=== PATIENT | male | born 1965 | race Caucasian/White ===

== ENCOUNTER 2019-07-30 16:33 | Inpatient (IN) | payer BC ==
[~2019-07-30] VITALS: Ht 172.7 cm; Wt 66.2 kg
[~2019-07-30 16:33] MED LIST: AMOCLA875 PO; ATOR40TA PO; Aspirin EC81 MG PO; HYDACE5 PO; IBUP800 PO; LISI20 PO; META800 PO; METO50 PO; OTC COLD MED
[2019-07-30 17:49] LABS: BASOPHILS ABSOLUTE AUTO 0.08 K/mm3 (0.00-0.23); BASOPHILS PERCENT AUTO 1 % (0-2); EOSINOPHILS PERCENT AUTO 1 % (0-6); Hematocrit 41.8 % (37.0-53.0); Hemoglobin 13.7 g/dL (13.5-17.5); IMMATURE GRAN ABSOLUTE AUTO 0.02 K/mm3 (0.00-0.10); IMMATURE GRAN PERCENT AUTO 0 % (0-1); LYMPHOCYTES ABSOLUTE AUTO 1.48 K/mm3 (0.84-5.20); LYMPHOCYTES PERCENT AUTO 20 % (21-46); MONOCYTES ABSOLUTE AUTO 0.73 K/mm3 (0.16-1.47); MONOCYTES PERCENT AUTO 10 % (4-13); Mean Corpuscular HGB 29.9 pg (26.0-34.0); Mean Corpuscular HGB Conc 32.8 g/dL (31.5-36.5); Mean Corpuscular Volume 91 fL (80-100); Mean Platelet Volume 11.2 fL (9.1-12.4); NEUTROPHILS ABSOLUTE AUTO 4.83 K/mm3 (1.96-9.15); NEUTROPHILS PERCENT AUTO 67 % (41-73); Platelet Count 250 K/mm3 (150-400); RDW Coefficient Variation 13.5 % (11.7-14.2); RDW Standard Deviation 45.1 fL (35.1-46.3); Red Blood Cell Count 4.58 M/mm3 (4.30-5.90); White Blood Cell Count 7.24 K/mm3 (4.00-11.30)
[2019-07-30 18:15] LABS: Alanine Aminotransfer (ALT/SGP 106 U/L (12-78); Albumin, Blood 3.5 g/dL (3.4-5.0); Albumin/Globulin Ratio 1.1 (0.8-1.8); Alk Phos 70 U/L (50-136); Anion Gap 5 mmol/L (6-16); Aspartate Aminotrans (AST/SGOT 112 U/L (12-37); Bilirubin, Total 0.8 mg/dL (0.1-1.0); Blood Urea Nitrogen 32 mg/dL (8-24); Bun/Creatinine Ratio 28.1 (12.0-20.0); CO2, Blood 25 mmol/L (21-32); Calcium, Blood 8.1 mg/dL (8.5-10.1); Chloride, Blood 110 mmol/L (98-108); Creatinine, Blood 1.14 mg/dL (0.60-1.20); Ethanol (Alcohol), Blood, Med <3 mg/dL; Globulin, Blood 3.1 g/dL (2.2-4.0); Glomerular Filtration Rate >60 (60-); Glucose, Blood 115 mg/dL (70-99); Potassium, Blood 4.1 mmol/L (3.5-5.5); Sodium, Blood 140 mmol/L (136-145); Total Protein, Blood 6.6 g/dL (6.4-8.2)
[2019-07-31 05:15] LABS: BASOPHILS ABSOLUTE AUTO 0.08 K/mm3 (0.00-0.23); BASOPHILS PERCENT AUTO 1 % (0-2); EOSINOPHILS ABSOLUTE AUTO 0.29 K/mm3 (0.00-0.68); EOSINOPHILS PERCENT AUTO 4 % (0-6); Hematocrit 39.4 % (37.0-53.0); Hemoglobin 12.9 g/dL (13.5-17.5); IMMATURE GRAN ABSOLUTE AUTO 0.01 K/mm3 (0.00-0.10); IMMATURE GRAN PERCENT AUTO 0 % (0-1); LYMPHOCYTES ABSOLUTE AUTO 1.91 K/mm3 (0.84-5.20); LYMPHOCYTES PERCENT AUTO 26 % (21-46); MONOCYTES ABSOLUTE AUTO 0.82 K/mm3 (0.16-1.47); MONOCYTES PERCENT AUTO 11 % (4-13); Mean Corpuscular HGB 29.3 pg (26.0-34.0); Mean Corpuscular HGB Conc 32.7 g/dL (31.5-36.5); Mean Corpuscular Volume 90 fL (80-100); Mean Platelet Volume 10.5 fL (9.1-12.4); NEUTROPHILS ABSOLUTE AUTO 4.36 K/mm3 (1.96-9.15); NEUTROPHILS PERCENT AUTO 58 % (41-73); Platelet Count 215 K/mm3 (150-400); RDW Coefficient Variation 13.4 % (11.7-14.2); RDW Standard Deviation 43.7 fL (35.1-46.3); White Blood Cell Count 7.47 K/mm3 (4.00-11.30)
[2019-07-31 05:37] LABS: Anion Gap 8 mmol/L (6-16); Blood Urea Nitrogen 25 mg/dL (8-24); Bun/Creatinine Ratio 23.6 (12.0-20.0); CO2, Blood 26 mmol/L (21-32); Calcium, Blood 7.6 mg/dL (8.5-10.1); Chloride, Blood 108 mmol/L (98-108); Creatinine, Blood 1.06 mg/dL (0.60-1.20); Glomerular Filtration Rate >60 (60-); Glucose, Blood 79 mg/dL (70-99); Potassium, Blood 3.6 mmol/L (3.5-5.5); Sodium, Blood 142 mmol/L (136-145)
--- NOTE | 2019-07-31 05:53 | NUR ---
SHIFT SUMMARY PT RESTING IN ROOM COMFORTABLY AT THIS TIME. NO ACUTE CHANGES IN STATUS SINCE ARRIVAL. RESP EVEN UNLABORED ON RA W/ SATS >92%. DENIED CP OR SOB T/O NIGHT. PT HAS SOME CONFUSION AND LOSES TRAIN OF THOUGHT EASILY, NEEDS REMINDING AND REDIRECTING BUT FOLLOWS DIRECTIONS WELL. BED ALARM PLACED FOR SAFETY. PT USING CALL LIGHT APPROPRIATELY. WILL GIVE BEDSIDE REPORT TO ONCOMING RN.
--- NOTE | 2019-07-31 08:04 | NUR ---
Hepatologist at bedside updating pt on plan of care. Pt educated by wastewater treatment plant operator about options of angiogram vs medical management. Plan is for angiogram. MD edcuated pt, assessed for further questions. This RN at bedside during conversation.
[2019-07-31 12:11] LABS: CHOL/HDL RATIO 2.5; Cholesterol 140 mg/dL (50-200); HDL Cholesterol 57 mg/dL (>39); LDL/HDL RATIO 1.3; Low Density Lipoprotein Chol 74 mg/dL (0-110); Triglycerides 46 mg/dL (30-160); Very Low Density Lipoprot Chol 9 mg/dL (6-32)
--- NOTE | 2019-07-31 14:30 | NUR ---
TR BAND DEFLATION BEGUN. SITE WNL. SEE CATH MANAGEMENT SITE DOCUMENTATION FOR SUBSEQUENT DOCUMENTATION REGARDING RECOVERY.
--- NOTE | 2019-07-31 16:02 | NUR ---
TR BAND COMPLETELY DEFLATED, NO ACTIVE BLEEDING. EVIDENCE 45 MINUTES AGO OF BLEEDING WHICH MUST HAVE OCCURED WITH PRIOR DEFLATION, NO ACTIVE BLEEDING, NO HEMATOMA, NO SWELLING, NO BRUISING NOTED. TR BAND IN PLACE. VITAL SIGNS STABLE, AND PT DENIES ALL PAIN/DISCOMFORT.
--- NOTE | 2019-07-31 19:43 | NUR ---
Shift Summary Pt is s/p angio. all coronaries are clear per official court interpreter. R radial access site WNL, site fully recovered with no events. Site non tender. Pulses equal bilat. See shift assessment for detailed systems assessment. No acute chagnes throughout shift. Pt has mild confusion at baseline when recalling previous events. Pt's daughter, Jocelyn in to see pt today. Her phone number is : [phone]. She would like to be updated with changes in pt condition or plans for future procedures. Pt's son, Yogesh, updated on pt condition today. His phone number is [phone]. No acute concerns. Report off to [facility]A Car who assumes care.
--- NOTE | 2019-07-31 23:00 | NUR ---
wrist well profused, pulse strong, dried blood on wrist identified by previous nurse as being there previously, cleaned up wrist and placed clear dressing, still using brace for protection, currently resting with eyes closed and even breathing, tv on, call light in reach, bed in low positon, rm air, saline locked, a+o, anxious at times, concerned r/cognition of pt, explaining procedures in simple redundent terms, will continue to monitor and treat until share bsr with pt and day shift nurse
[2019-08-01 04:31] LABS: Albumin, Blood 3.1 g/dL (3.4-5.0); Anion Gap 7 mmol/L (6-16); Blood Urea Nitrogen 24 mg/dL (8-24); CO2, Blood 27 mmol/L (21-32); Calcium, Blood 8.1 mg/dL (8.5-10.1); Chloride, Blood 107 mmol/L (98-108); Creatinine, Blood 1.09 mg/dL (0.60-1.20); Glomerular Filtration Rate >60 (60-); Glucose, Blood 80 mg/dL (70-99); Phosphorus, Blood 3.1 mg/dL (2.5-4.9); Potassium, Blood 3.9 mmol/L (3.5-5.5); Sodium, Blood 141 mmol/L (136-145)
--- NOTE | 2019-08-01 06:30 | NUR ---
alert at baseline, knows basic facts but gets confused by the details, no acute incedents noted during the shift, used urinal on his own, rm air, saline locked, bed in low position, wrist site looks good, will continue to monitor and treat until share bsr with day staff and pt
[2019-08-01] MEDS ORDERED: FURO20 PO (10:53)
[2019-08-01] MEDS ORDERED: NITR.4SL SL (10:54)
[2019-08-01] MEDS ORDERED: POTA10T PO (10:54)
--- NOTE | 2019-08-01 14:38 | NUR ---
PATIENT DC'D TO HOME WITH DAUGHTER. DC INSTRUCTIONS AND EDUCATION DISCUSSED WITH PATIENT AND COPY PROVIDED. PATIENT DOES NOT HAVE A PCP, LEFT A MESSAGE WITH LOOM INSPECTOR TO FOLLOW UP WITH PATIENT AND ASSIST WITH ESTABLISHING A PCP. PATIENT AND FAMILY DENY ANY FURTHER QUESTIONS OR CONCERNS.
== END 2019-08-01 14:35 | disposition home or self-care (01) | DRG 280 ==
LOC: ER 16:33 → ERHOLD 16:34 → PCU 16:34
PROVIDERS: Internal Medicine; Nurse Practitioner Acute Care; Physician Assistant; ADMIT Hospitalist
PROC: B2111ZZ Fluoroscopy of Multiple Coronary Arteries using Low Osmolar Contrast (ICD-10-PCS; principal; 2019-07-31)
DX: I11.0 Hypertensive heart disease with heart failure (principal); I50.21 Acute systolic (congestive) heart failure; I21.A1 Myocardial infarction type 2; G92 Toxic encephalopathy; Z79.82 Long term (current) use of aspirin; I42.8 Other cardiomyopathies; I25.2 Old myocardial infarction; E78.5 Hyperlipidemia, unspecified; F17.210 Nicotine dependence, cigarettes, uncomplicated; I77.810 Thoracic aortic ectasia; I35.1 Nonrheumatic aortic (valve) insufficiency
CPT/HCPCS: 36415; 70450; 71045; 76937; 80048; 80053; 80061; 80069; 82140; 82947; 83036; 83880; 84443; 84484; 85025; 85730; 86592; 93005; 93010; 93458; 93970; 96365; 96375; 96376; 99152; 99153; 99285-25; A9270-GY; C1769; C1894; C8929; G0480; J1644; J1940; J2250; J3010; J7030; Q9957; Q9967

== ENCOUNTER 2019-08-09 14:47 | Day surgery (SDC) | payer BC ==
[~2019-08-09 14:47] MED LIST changes: +FURO20 PO; +NITR.4SL SL; +POTA10T PO
--- NOTE | 2019-08-09 17:27 | NUR ---
PT NOT SEEN IN [facility] TODAY
== END 2019-08-09 23:00 | disposition home or self-care (01) ==
LOC: ATC 14:47
DX: I21.4 Non-ST elevation (NSTEMI) myocardial infarction (principal); I63.40 Cerebral infarction due to embolism of unspecified cerebral artery; I48.0 Paroxysmal atrial fibrillation; I11.0 Hypertensive heart disease with heart failure; I50.9 Heart failure, unspecified; E78.5 Hyperlipidemia, unspecified; Z91.038 Other insect allergy status; Z79.82 Long term (current) use of aspirin; Z79.01 Long term (current) use of anticoagulants; Z79.899 Other long term (current) drug therapy; F17.210 Nicotine dependence, cigarettes, uncomplicated; G47.33 Obstructive sleep apnea (adult) (pediatric); Z99.89 Dependence on other enabling machines and devices

== ENCOUNTER 2019-08-11 01:51 | Day surgery (SDC) | payer BC ==
[2019-08-12] MEDS ORDERED: WARF5 PO (10:32)
[2019-08-12] MEDS ORDERED: MAGNESIUM OXID500 MG PO (10:33)
[2019-08-12] MEDS ORDERED: B Complex-Foli1 EACH PO (10:34)
== END 2019-08-11 03:30 | disposition home or self-care (01) ==
LOC: ATC 01:51
DX: I48.0 Paroxysmal atrial fibrillation (principal); I63.40 Cerebral infarction due to embolism of unspecified cerebral artery; E78.5 Hyperlipidemia, unspecified; I25.2 Old myocardial infarction; F17.200 Nicotine dependence, unspecified, uncomplicated; I11.0 Hypertensive heart disease with heart failure; I50.9 Heart failure, unspecified; G47.33 Obstructive sleep apnea (adult) (pediatric)

== ENCOUNTER 2019-08-12 00:14 | Day surgery (SDC) | payer BC ==
[2019-08-12] MEDS ORDERED: WARF5 PO (10:32)
[2019-08-12] MEDS ORDERED: MAGNESIUM OXID500 MG PO (10:33)
[2019-08-12] MEDS ORDERED: B Complex-Foli1 EACH PO (10:34)
--- NOTE | 2019-08-12 11:00 | NUR ---
PTS FINGERSTICK INR TODAY IS 2.2 WILL COME BACK TOMORROW
== END 2019-08-12 10:55 | disposition home or self-care (01) ==
LOC: ATC 00:14
DX: I63.40 Cerebral infarction due to embolism of unspecified cerebral artery (principal); I48.0 Paroxysmal atrial fibrillation; Z79.01 Long term (current) use of anticoagulants; F17.210 Nicotine dependence, cigarettes, uncomplicated; I10 Essential (primary) hypertension; Z79.899 Other long term (current) drug therapy; I21.4 Non-ST elevation (NSTEMI) myocardial infarction; Z72.89 Other problems related to lifestyle
CPT/HCPCS: 36416; 85610; 96372; J1650

== ENCOUNTER 2019-08-13 00:03 | Day surgery (SDC) | payer BC ==
[~2019-08-13 00:03] MED LIST changes: +B Complex-Foli1 EACH PO; +MAGNESIUM OXID500 MG PO; +WARF5 PO
--- NOTE | 2019-08-13 11:46 | NUR ---
PT EXTREMELY ANXIOUS, CAREPROVIDER WAITED OUT IN WAITING ROOM. ALERTED HER OF PTS APPOINTMENT AND FINGERSTICK INR GOING DOWN TODAY FROM YESTERDAY, THEY ARE SUPPOSE TO GO TO [facility]
== END 2019-08-13 11:30 | disposition home or self-care (01) ==
LOC: ATC 00:03
DX: I21.4 Non-ST elevation (NSTEMI) myocardial infarction (principal); I63.40 Cerebral infarction due to embolism of unspecified cerebral artery; I48.0 Paroxysmal atrial fibrillation; E78.5 Hyperlipidemia, unspecified; I50.20 Unspecified systolic (congestive) heart failure; I25.2 Old myocardial infarction; F17.200 Nicotine dependence, unspecified, uncomplicated; Z79.01 Long term (current) use of anticoagulants; Z79.899 Other long term (current) drug therapy
CPT/HCPCS: 36416; 85610; 96372; J1650

== ENCOUNTER 2019-08-14 00:31 | Day surgery (SDC) | payer BC | END 2019-08-14 15:30 | disposition home or self-care (01) | LOC: ATC 00:31 | DX: I63.40 Cerebral infarction due to embolism of unspecified cerebral artery (principal); I48.0 Paroxysmal atrial fibrillation; I11.0 Hypertensive heart disease with heart failure; I50.20 Unspecified systolic (congestive) heart failure; I25.5 Ischemic cardiomyopathy; E78.5 Hyperlipidemia, unspecified; M19.042 Primary osteoarthritis, left hand; M19.041 Primary osteoarthritis, right hand; F17.210 Nicotine dependence, cigarettes, uncomplicated; I25.2 Old myocardial infarction; Z79.01 Long term (current) use of anticoagulants; Z79.82 Long term (current) use of aspirin; Z79.899 Other long term (current) drug therapy | CPT/HCPCS: 85610; 96372; J1650 ==

== ENCOUNTER 2019-08-15 02:16 | Day surgery (SDC) | payer BC | END 2019-08-15 15:05 | disposition home or self-care (01) | LOC: ATC 02:16 | DX: I63.40 Cerebral infarction due to embolism of unspecified cerebral artery (principal); I48.0 Paroxysmal atrial fibrillation; E78.5 Hyperlipidemia, unspecified; I11.0 Hypertensive heart disease with heart failure; I50.9 Heart failure, unspecified; F17.210 Nicotine dependence, cigarettes, uncomplicated; G47.33 Obstructive sleep apnea (adult) (pediatric); Z79.82 Long term (current) use of aspirin; Z79.899 Other long term (current) drug therapy | CPT/HCPCS: 96372; J1650 ==

== ENCOUNTER 2019-08-17 00:19 | Day surgery (SDC) | payer BC ==
--- NOTE | 2019-08-17 15:26 | NUR ---
Spoke with pt and his brother and sister in law about coumadin dosing and coumadin diet. Coumadin dose has been increased to 7.5 mg PO nightly starting tonight per pt's brother. Labs drawn from [facility]. Ammonia level drawn and sent on ice to lab.
== END 2019-08-17 15:15 | disposition home or self-care (01) ==
LOC: ATC 00:19
DX: I21.4 Non-ST elevation (NSTEMI) myocardial infarction (principal); I63.40 Cerebral infarction due to embolism of unspecified cerebral artery; I48.0 Paroxysmal atrial fibrillation; E78.5 Hyperlipidemia, unspecified; I11.0 Hypertensive heart disease with heart failure; F17.210 Nicotine dependence, cigarettes, uncomplicated; G47.33 Obstructive sleep apnea (adult) (pediatric); I50.9 Heart failure, unspecified; Z91.038 Other insect allergy status; Z79.82 Long term (current) use of aspirin; Z79.899 Other long term (current) drug therapy
CPT/HCPCS: 82140; 85610; J1650

== ENCOUNTER 2019-08-18 00:21 | Day surgery (SDC) | payer BC | END 2019-08-18 15:12 | disposition home or self-care (01) | LOC: ATC 00:21 | DX: I21.4 Non-ST elevation (NSTEMI) myocardial infarction (principal); I63.40 Cerebral infarction due to embolism of unspecified cerebral artery; I48.0 Paroxysmal atrial fibrillation; I11.0 Hypertensive heart disease with heart failure; I50.9 Heart failure, unspecified; F17.210 Nicotine dependence, cigarettes, uncomplicated; E78.5 Hyperlipidemia, unspecified; I25.2 Old myocardial infarction; Z79.01 Long term (current) use of anticoagulants; Z91.038 Other insect allergy status; Z79.82 Long term (current) use of aspirin; Z79.899 Other long term (current) drug therapy; G47.33 Obstructive sleep apnea (adult) (pediatric); Z99.89 Dependence on other enabling machines and devices | CPT/HCPCS: 85610; J1650 ==

== ENCOUNTER 2019-08-19 03:07 | Day surgery (SDC) | payer BC ==
--- NOTE | 2019-08-19 15:31 | NUR ---
PT AND HIS BROTHER STATE THAT PT HAS AN APPOINTMENT WITH [facility] TOM[facility]ROW. HH NURSE FILLED PILL BOX THIS MORNING. BROTHER STATES THEY MAY NEED TO CALL HH NURSE TOMORROW IF [facility] CHANGES HIS COUMADIN DOSE.
== END 2019-08-19 15:20 | disposition home or self-care (01) ==
LOC: ATC 03:07
DX: I21.4 Non-ST elevation (NSTEMI) myocardial infarction (principal); I63.40 Cerebral infarction due to embolism of unspecified cerebral artery; I48.0 Paroxysmal atrial fibrillation; I25.2 Old myocardial infarction; E78.5 Hyperlipidemia, unspecified; I11.0 Hypertensive heart disease with heart failure; I50.9 Heart failure, unspecified; F17.210 Nicotine dependence, cigarettes, uncomplicated; G47.33 Obstructive sleep apnea (adult) (pediatric); Z99.89 Dependence on other enabling machines and devices; Z79.01 Long term (current) use of anticoagulants; Z91.038 Other insect allergy status; Z79.82 Long term (current) use of aspirin; Z79.899 Other long term (current) drug therapy
CPT/HCPCS: 85610; J1650

== ENCOUNTER 2019-08-20 00:04 | Day surgery (SDC) | payer BC | END 2019-08-20 15:16 | disposition home or self-care (01) | LOC: ATC 00:04 | DX: I21.4 Non-ST elevation (NSTEMI) myocardial infarction (principal); E78.5 Hyperlipidemia, unspecified; I25.2 Old myocardial infarction; I11.0 Hypertensive heart disease with heart failure; I50.9 Heart failure, unspecified; F17.210 Nicotine dependence, cigarettes, uncomplicated; G47.33 Obstructive sleep apnea (adult) (pediatric); Z99.89 Dependence on other enabling machines and devices; Z91.038 Other insect allergy status; Z79.82 Long term (current) use of aspirin; Z79.899 Other long term (current) drug therapy | CPT/HCPCS: 36416; 85610; 96372; J1650 ==

== ENCOUNTER 2019-08-21 00:08 | Day surgery (SDC) | payer BC | END 2019-08-21 15:01 | disposition home or self-care (01) | LOC: ATC 00:08 | DX: I21.4 Non-ST elevation (NSTEMI) myocardial infarction (principal); I63.40 Cerebral infarction due to embolism of unspecified cerebral artery; I48.0 Paroxysmal atrial fibrillation; I25.2 Old myocardial infarction; E78.5 Hyperlipidemia, unspecified; F17.210 Nicotine dependence, cigarettes, uncomplicated; I11.0 Hypertensive heart disease with heart failure; I50.9 Heart failure, unspecified; Z91.038 Other insect allergy status; Z79.82 Long term (current) use of aspirin; Z79.899 Other long term (current) drug therapy; G47.33 Obstructive sleep apnea (adult) (pediatric); Z99.89 Dependence on other enabling machines and devices | CPT/HCPCS: 36416; 85610; 96372; J1650 ==

== ENCOUNTER 2019-08-22 00:30 | Day surgery (SDC) | payer BC ==
--- NOTE | 2019-08-22 15:04 | NUR ---
FINGERSTICK INR = 1.6 TODAY.
--- NOTE | 2019-08-22 18:25 | NUR ---
RESULTS OF INR FAXED TO [facility] OFFICE.
== END 2019-08-22 15:11 | disposition home or self-care (01) ==
LOC: ATC 00:30
DX: I21.4 Non-ST elevation (NSTEMI) myocardial infarction (principal); I63.40 Cerebral infarction due to embolism of unspecified cerebral artery; I11.0 Hypertensive heart disease with heart failure; I50.9 Heart failure, unspecified; I48.0 Paroxysmal atrial fibrillation; E78.5 Hyperlipidemia, unspecified; I25.2 Old myocardial infarction; Z79.82 Long term (current) use of aspirin; Z79.899 Other long term (current) drug therapy; Z91.038 Other insect allergy status; F17.210 Nicotine dependence, cigarettes, uncomplicated; G47.33 Obstructive sleep apnea (adult) (pediatric); Z99.89 Dependence on other enabling machines and devices
CPT/HCPCS: 85610; J1650

== ENCOUNTER 2020-12-20 09:07 | Day surgery (SDC) | payer OTHER ==
[~2020-12-20] VITALS: Ht 167.6 cm; Wt 91.5 kg
[2020-12-20] MEDS ORDERED: ELIQUIS5 M3 PO (10:09)
[2020-12-20] MEDS ORDERED: FUROSEMIDE40 MG PO (10:10)
--- NOTE | 2020-12-20 10:30 | NUR ---
Ambulatory in Day Surgery. Patient confirms NPO status and agrees with scheduled surgery. Patient States Post-Procedure ride home has been arranged. History, Chart, Medications and Allergies reviewed before start of procedure. Lungs clear T/O to Auscultation. + VOID PRIOR TO PROCEDURE.
--- NOTE | 2020-12-20 11:34 | NUR ---
12/20/20 1134 Sriram Saucedo History, Chart, Medications and Allergies reviewed before start of procedure. MONITOR INTACT WITH CONTINUOUS PULSE OXIMETRY AND INTERMITTENT BP. 3-LEAD EKG REVIEWED WITH PHYSICIAN PRIOR TO START OF PROCEDURE. O2 VIA N/C INTACT THROUGHOUT SEDATION/PROCEDURE. PATIENT DETERMINED TO BE ASA APPROPRIATE FOR PROPOFOL SEDATION PRIOR TO START OF PROCEDURE BY DR. CORREA.
--- NOTE | 2020-12-20 13:02 | NUR ---
Patient up to Ambulate independently. Gait steady. Discharged via wheelchair to private car for ride home WITH NEIGHBOR. Discharge instructions reviewed with patient. Patient verbalizes understanding. Copy given to patient to take home.
== END 2020-12-20 23:01 | disposition home or self-care (01) ==
LOC: ORSCMMR 09:07 → ORD 10:00 → ORSCMMR 10:00
PROVIDERS: Internal Medicine Gastroenterology
PROC: 0DBN8ZX Excision of Sigmoid Colon, Via Natural or Artificial Opening Endoscopic, Diagnostic (ICD-10-PCS; principal; 2020-12-20 10:00)
PROC: 0DBP8ZX Excision of Rectum, Via Natural or Artificial Opening Endoscopic, Diagnostic (ICD-10-PCS; principal; 2020-12-20 10:00)
DX: Z12.11 Encounter for screening for malignant neoplasm of colon (principal); D12.5 Benign neoplasm of sigmoid colon; K62.1 Rectal polyp; Z79.01 Long term (current) use of anticoagulants; Z79.899 Other long term (current) drug therapy; Z87.891 Personal history of nicotine dependence
CPT/HCPCS: 88305; J2704; J7120

== ENCOUNTER → 2021-04-14 | Outpatient (CLI) | payer OTHER ==
[~2021-04-14] MED LIST changes: +ELIQUIS5 M3 PO; +FUROSEMIDE40 MG PO
[2021-04-14 19:43] LABS: Albumin, Blood 3.9 g/dL (3.4-5.0); Albumin/Globulin Ratio 0.9 (0.8-1.8); Bilirubin, Direct 0.2 mg/dL (0.0-0.3); Bilirubin, Indirect 0.8 mg/dL (0.1-0.7); Globulin, Blood 4.2 g/dL (2.2-4.0); Total Protein, Blood 8.1 g/dL (6.4-8.2)
== END ==
LOC: LAB SHORT 18:10 → LAB 18:10
PROVIDERS: Physician Assistant
DX: R74.01 Elevation of levels of liver transaminase levels (principal); Z91.038 Other insect allergy status
CPT/HCPCS: 80076

== ENCOUNTER → 2021-11-07 | Outpatient (CLI) | payer OTHER ==
[2021-11-07 19:06] LABS: BASOPHILS ABSOLUTE AUTO 0.07 K/mm3 (0.00-0.23); BASOPHILS PERCENT AUTO 1 % (0-2); EOSINOPHILS ABSOLUTE AUTO 0.23 K/mm3 (0.00-0.68); EOSINOPHILS PERCENT AUTO 3 % (0-6); Hematocrit 44.8 % (37.0-53.0); Hemoglobin 15.1 g/dL (13.5-17.5); IMMATURE GRAN ABSOLUTE AUTO 0.02 K/mm3 (0.00-0.10); IMMATURE GRAN PERCENT AUTO 0 % (0-1); LYMPHOCYTES ABSOLUTE AUTO 2.13 K/mm3 (0.84-5.20); LYMPHOCYTES PERCENT AUTO 30 % (21-46); MONOCYTES ABSOLUTE AUTO 0.88 K/mm3 (0.16-1.47); MONOCYTES PERCENT AUTO 13 % (4-13); Mean Corpuscular HGB 30.2 pg (26.0-34.0); Mean Corpuscular HGB Conc 33.7 g/dL (31.5-36.5); Mean Corpuscular Volume 90 fL (80-100); Mean Platelet Volume 10.8 fL (9.1-12.4); NEUTROPHILS ABSOLUTE AUTO 3.69 K/mm3 (1.96-9.15); NEUTROPHILS PERCENT AUTO 53 % (41-73); Platelet Count 223 K/mm3 (150-400); RDW Coefficient Variation 12.7 % (11.7-14.2); RDW Standard Deviation 41.8 fL (35.1-46.3); White Blood Cell Count 7.02 K/mm3 (4.00-11.30)
[2021-11-07 20:00] LABS: Alanine Aminotransfer (ALT/SGP 50 U/L (12-78); Albumin, Blood 3.9 g/dL (3.4-5.0); Alk Phos 68 U/L (50-136); Anion Gap 5 mmol/L (6-16); Aspartate Aminotrans (AST/SGOT 42 U/L (12-37); Bilirubin, Total 1.1 mg/dL (0.1-1.0); Blood Urea Nitrogen 22 mg/dL (8-24); Bun/Creatinine Ratio 23.4 (12.0-20.0); CHOL/HDL RATIO 2.4; CO2, Blood 28 mmol/L (21-32); Calcium, Blood 8.5 mg/dL (8.5-10.1); Chloride, Blood 108 mmol/L (98-108); Cholesterol 118 mg/dL (50-200); Creatinine, Blood 0.94 mg/dL (0.60-1.20); Free Thyroxine 1.06 ng/dL (0.70-1.60); Globulin, Blood 3.9 g/dL (2.2-4.0); Glomerular Filtration Rate 95 (60-); Glucose, Blood 87 mg/dL (70-99); HDL Cholesterol 49 mg/dL (>39); Low Density Lipoprotein Chol 51 mg/dL (0-110); Potassium, Blood 4.7 mmol/L (3.5-5.5); Sodium, Blood 141 mmol/L (136-145); Total Protein, Blood 7.8 g/dL (6.4-8.2); Triglycerides 90 mg/dL (30-160); Very Low Density Lipoprot Chol 18 mg/dL (6-32)
== END ==
LOC: LAB SHORT 18:57
PROVIDERS: Family Medicine
DX: Z00.00 Encounter for general adult medical examination without abnormal findings (principal); F03.90 Unspecified dementia, unspecified severity, without behavioral disturbance, psychotic disturbance, mood disturbance, and anxiety; Z13.6 Encounter for screening for cardiovascular disorders; Z12.11 Encounter for screening for malignant neoplasm of colon
CPT/HCPCS: 80053; 80061; 82607; 82746; 84439; 85025; 85651

== ENCOUNTER → 2022-05-21 | Outpatient (CLI) | payer OTHER ==
[2022-05-21 19:43] LABS: Bun/Creatinine Ratio 16.4 (12.0-20.0); Calcium, Blood 8.8 mg/dL (8.5-10.1); Creatinine, Blood 0.86 mg/dL (0.60-1.20); Potassium, Blood 4.7 mmol/L (3.5-5.5)
== END | disposition home or self-care (01) ==
LOC: LAB SHORT 18:20
PROVIDERS: Family Medicine
DX: I10 Essential (primary) hypertension (principal)
CPT/HCPCS: 80048

== ENCOUNTER 2023-12-03 12:30 | Emergency (ER) | payer OTHER, MEDICARE ==
[~2023-12-03] VITALS: Ht 172.7 cm; Wt 77.1 kg
[2023-12-03] MEDS ORDERED: CeFAZolin Sodium 2,000 MG in NS 100 ML IV ONE (13:00)
[2023-12-03] MEDS ORDERED: Lactated Ringer's 1,000 ML IV ONE (13:00)
[2023-12-03] MEDS ORDERED: Lidocaine 1%-Epineph 1:100000 20 ML MDV INFIL ONE (13:00)
[2023-12-03] MEDS ORDERED: Tetanus and Diphtheria Toxoid 0.5 ML INJ IM ONE (13:00)
[2023-12-03 13:05] LABS: BASOPHILS ABSOLUTE AUTO 0.05 K/mm3 (0.00-0.23); BASOPHILS PERCENT AUTO 1 % (0-2); EOSINOPHILS ABSOLUTE AUTO 0.23 K/mm3 (0.00-0.68); EOSINOPHILS PERCENT AUTO 4 % (0-6); Hemoglobin 15.6 g/dL (13.5-17.5); IMMATURE GRAN ABSOLUTE AUTO 0.01 K/mm3 (0.00-0.10); IMMATURE GRAN PERCENT AUTO 0 % (0-1); LYMPHOCYTES ABSOLUTE AUTO 1.94 K/mm3 (0.84-5.20); LYMPHOCYTES PERCENT AUTO 31 % (21-46); MONOCYTES ABSOLUTE AUTO 0.73 K/mm3 (0.16-1.47); MONOCYTES PERCENT AUTO 12 % (4-13); Mean Corpuscular HGB Conc 33.9 g/dL (31.5-36.5); Mean Corpuscular Volume 89 fL (80-100); Mean Platelet Volume 10.2 fL (9.1-12.4); NEUTROPHILS ABSOLUTE AUTO 3.29 K/mm3 (1.96-9.15); NEUTROPHILS PERCENT AUTO 53 % (41-73); Platelet Count 205 K/mm3 (150-400); RDW Coefficient Variation 12.9 % (11.7-14.2); RDW Standard Deviation 42.1 fL (35.1-46.3); White Blood Cell Count 6.25 K/mm3 (4.00-11.30)
[2023-12-03 13:17] LABS: Albumin, Blood 3.6 g/dL (3.4-5.0); Albumin/Globulin Ratio 0.9 (0.8-1.8); Bilirubin, Total 0.8 mg/dL (0.1-1.0); Calcium, Blood 8.5 mg/dL (8.5-10.1); Creatinine, Blood 0.93 mg/dL (0.60-1.20); Globulin, Blood 3.8 g/dL (2.2-4.0); Potassium, Blood 4.5 mmol/L (3.5-5.5); Total Protein, Blood 7.4 g/dL (6.4-8.2)
[2023-12-03 18:15] VITALS: BP 125/77
[2023-12-03] MEDS ORDERED: BACITO TOP (18:16)
[2023-12-03] MEDS ORDERED: CEPH500 PO (18:16)
== END 2023-12-03 18:50 | disposition home or self-care (01) ==
LOC: ER 12:30
PROVIDERS: Emergency Medicine
DX: S01.01XA Laceration without foreign body of scalp, initial encounter (principal); F17.200 Nicotine dependence, unspecified, uncomplicated; I25.2 Old myocardial infarction; V19.9XXA Pedal cyclist (driver) (passenger) injured in unspecified traffic accident, initial encounter; Z91.038 Other insect allergy status; Z79.82 Long term (current) use of aspirin; Z79.899 Other long term (current) drug therapy
CPT/HCPCS: 12004; 12034; 70450; 72125; 80053; 85025; 86900; 86901; 90471; 90714; 96361-59; 96365-59; 99285-25; J0690; J7120

== ENCOUNTER 2024-06-11 14:02 | Observation (INO) | payer MEDICARE ==
[~2024-06-11] VITALS: Ht 165.1 cm; Wt 88.4 kg
[~2024-06-11 14:02] MED LIST changes: +BACITO TOP; +CEPH500 PO
[2024-06-11 15:43] LABS: BASOPHILS ABSOLUTE AUTO 0.07 K/mm3 (0.00-0.23); BASOPHILS PERCENT AUTO 1 % (0-2); EOSINOPHILS ABSOLUTE AUTO 0.16 K/mm3 (0.00-0.68); EOSINOPHILS PERCENT AUTO 2 % (0-6); Hematocrit 43.3 % (37.0-53.0); Hemoglobin 14.7 g/dL (13.5-17.5); IMMATURE GRAN ABSOLUTE AUTO 0.03 K/mm3 (0.00-0.10); IMMATURE GRAN PERCENT AUTO 0 % (0-1); LYMPHOCYTES ABSOLUTE AUTO 1.77 K/mm3 (0.84-5.20); LYMPHOCYTES PERCENT AUTO 19 % (21-46); MONOCYTES ABSOLUTE AUTO 0.93 K/mm3 (0.16-1.47); MONOCYTES PERCENT AUTO 10 % (4-13); Mean Corpuscular HGB 29.9 pg (26.0-34.0); Mean Corpuscular HGB Conc 33.9 g/dL (31.5-36.5); Mean Corpuscular Volume 88 fL (80-100); Mean Platelet Volume 10.7 fL (9.1-12.4); NEUTROPHILS ABSOLUTE AUTO 6.59 K/mm3 (1.96-9.15); NEUTROPHILS PERCENT AUTO 69 % (41-73); Platelet Count 300 K/mm3 (150-400); RDW Coefficient Variation 13.2 % (11.7-14.2); RDW Standard Deviation 42.5 fL (35.1-46.3); Red Blood Cell Count 4.91 M/mm3 (4.30-5.90); White Blood Cell Count 9.55 K/mm3 (4.00-11.30)
[2024-06-11 16:08] LABS: Albumin, Blood 3.5 g/dL (3.4-5.0); Albumin/Globulin Ratio 0.9 (0.8-1.8); Bilirubin, Total 1.5 mg/dL (0.1-1.0); Bun/Creatinine Ratio 17.7 (12.0-20.0); Calcium, Blood 9.7 mg/dL (8.5-10.1); Creatinine, Blood 1.13 mg/dL (0.60-1.20); Globulin, Blood 4.1 g/dL (2.2-4.0); Potassium, Blood 4.4 mmol/L (3.5-5.5); Total Protein, Blood 7.6 g/dL (6.4-8.2)
[2024-06-11] MEDS ORDERED: Diltiazem HCl 5 MG / ML 5ML Vial IV ONE ×2 (16:45→18:05)
[2024-06-11 18:13] LABS: Influenza A, PCR NEGATIVE (NEGATIVE); Influenza B, PCR NEGATIVE (NEGATIVE); Resp Syncytial Virus, PCR NEGATIVE (NEGATIVE); SARS-Cov-2 (COVID-19) PCR, MMC NEGATIVE (NEGATIVE)
[2024-06-11] MEDS ORDERED: NS 1,000 ML IV SCH (19:35)
[2024-06-11] MEDS ORDERED: Metoprolol Tartrate 1 MG/ML 5 ML VIAL IV PRN (20:40)
[2024-06-11] MEDS ORDERED: Ondansetron HCl 2 MG / ML 2ML Vial IV PRN (20:45)
[2024-06-11] MEDS ORDERED: FLU VACC TS2024-25(6MOS UP)/PF 45 MCG/0.5 ML SYRINGE IM SCH (20:45)
[2024-06-11] MEDS ORDERED: Apixaban 5 MG Tab PO SCH (21:00)
[2024-06-11] MEDS ORDERED: Metoprolol Tartrate 25 MG Tab PO SCH (21:00)
[2024-06-11] MEDS ORDERED: Metoprolol Tartrate 50 MG Tab PO ONE (21:00)
[2024-06-11 21:57] LABS: Adenovirus Not Detected (NOT DETECT); Bordetella pertussis Not Detected (NOT DETECT); Chlamydophila pneumoniae Not Detected (NOT DETECT); Coronavirus 229E Not Detected (NOT DETECT); Coronavirus HKU1 Not Detected (NOT DETECT); Coronavirus NL63 Not Detected (NOT DETECT); Coronavirus OC43 Not Detected (NOT DETECT); Human Metapneumovirus Not Detected (NOT DETECT); Human Rhinovirus/Enterovirus Not Detected (NOT DETECT); Influenza A/2009-H1 Not Detected (NOT DETECT); Influenza A/H1 Not Detected (NOT DETECT); Influenza A/H3 Not Detected (NOT DETECT); Influenza B Not Detected (NOT DETECT); Mycoplasma pneumoniae Not Detected (NOT DETECT); Parainfluenza Virus 1 Not Detected (NOT DETECT); Parainfluenza Virus 2 Not Detected (NOT DETECT); Parainfluenza Virus 3 Not Detected (NOT DETECT); Parainfluenza Virus 4 Not Detected (NOT DETECT); Respiratory Syncytial Virus Not Detected (NOT DETECT); SARS-Cov-2 (COVID-19), BioFire Not Detected (NOT DETECT)
[2024-06-11 22:55] VITALS: BP 132/100
--- NOTE | 2024-06-12 | NUR ---
UPDATE CALL PLACED TO RESIDENT REGARDING PATIENT'S RESPIRATORY STATUS. PATIENT PLACED ON 2L NC D/T SATURATIONS MID 80s ON ARRIVAL TO PCU. SATURATIONS IMPROVED WITH OXYGEN PLACEMENT. TACHYPNEIC WITH RR 20s. PATIENT WITH CRACKLES IN BASES OF LUNGS. PATIENT CONFUSED AND RESTLESS. RESIDENT MADE AWARE, NO NEW ORDERS AT THIS TIME.
--- NOTE | 2024-06-12 04:13 | NUR ---
UPDATE RESIDENT CALLED AND UPDATED WITH PATIENT STATUS. PATIENT WITH INCREASING SOB, ANXIETY AND CONFUSION. PATIENT TACHYPNEIC AND CONTINUES TO HAVE HARSH NONPRODUCTIVE COUGH. ON 2L WHEN OXYGEN IN NOSE, PATIENT FREQUENTLY REMOVING AND REQUIRING REDIRECTION. SPO2 MID 80s WHEN O2 OUT OF NOSE. BLADDER SCAN PERFORMED D/T NO OUTPUT SINCE ADMISSION, <50 MLs IN BLADDER. RESIDENT AWARE. ORDER FOR VBG RECEIVED.
[2024-06-12 04:24] VITALS: BP 110/95
[2024-06-12 04:28] LABS: Albumin, Blood 3.3 g/dL (3.4-5.0); Albumin/Globulin Ratio 0.9 (0.8-1.8); Bilirubin, Total 1.3 mg/dL (0.1-1.0); Bun/Creatinine Ratio 20.2 (12.0-20.0); Calcium, Blood 8.9 mg/dL (8.5-10.1); Creatinine, Blood 1.09 mg/dL (0.60-1.20); Globulin, Blood 3.8 g/dL (2.2-4.0); Magnesium, Blood 1.8 mg/dL (1.6-2.4); Potassium, Blood 4.3 mmol/L (3.5-5.5); Total Protein, Blood 7.1 g/dL (6.4-8.2)
[2024-06-12 05:00] LABS: Base Excess Venous -0.8 mmol/L; Bicarbonate Venous 24.1 mmol/L (24.0-30.0); pH Blood Venous 7.43 (7.34-7.37)
--- NOTE | 2024-06-12 05:57 | NUR ---
SHIFT SUMMARY PATIENT ALERT, VERY CONFUSED. PATIENT REDIRECTED MULTIPLE TIMES DURING THE NIGHT. BED ALARM ON FOR SAFETY. PATIENT CONVERTED TO SR AROUND 0030, OCCASIONAL BIGEMINY. BP STABLE. PATIENT PLACED ON 2L FOR WORK OF BREATHING AND DESATTING TO MID 80s. PROVIDER MADE AWARE OF PATIENT'S RESPIRATORY STATUS, SEE PREVIOUS NOTES. NO OUTPUT THIS SHIFT, PATIENT BLADDER SCANNED WITH <50 MLs IN BLADDER. PATIENT STANDBY ASSIST IN ROOM. TOLERATING PO. NO OTHER CHANGES SINCE PREVIOUS NOTES. WILL REPORT TO DAY SHIFT RN.
[2024-06-12 08:29] VITALS: BP 134/84
[2024-06-12] MEDS ORDERED: Mag Sulfate 1 GM/D5% 100ML 100 ML IV STA (08:38)
[2024-06-12] MEDS ORDERED: Furosemide 40 MG Tab PO SCH (09:00)
[2024-06-12] MEDS ORDERED: Atorvastatin 40 MG Tab PO SCH (09:00)
[2024-06-12] MEDS ORDERED: Metoprolol Succinate 50 MG TABCR PO SCH (09:00)
[2024-06-12] MEDS ORDERED: Aspirin 81 MG Chew PO SCH (09:00)
[2024-06-12] MEDS ORDERED: Metoprolol Succinate 25 MG TABCR PO SCH (09:00)
[2024-06-12] MEDS ORDERED: Furosemide 10 MG/ML 4ML Vial IV SCH (10:00)
[2024-06-12] MEDS ORDERED: Lisinopril 10 MG Tab PO SCH (11:00)
[2024-06-12 11:55] VITALS: BP 120/84
--- NOTE | 2024-06-12 12:12 | NUR ---
PT HAS WOUND ON HIS RIGHT GREAT TOE, STATES HE HAS HAD IT FOR "LONG TIME." BOTH FEET ARE DUSKY, COOL, WITH VERY LITTLE SENSATION. MD NOTIFIED. PHOTOS IN CHART.
[2024-06-12 15:10] VITALS: BP 134/106
--- NOTE | 2024-06-12 15:10 | NUR ---
Pt. is awake in bed and welcomes my visit. Pt. is pleasant but did display some initial evidence of confusion. Pt. verbalized about the recent passing of his mother in the [facility] four days previous. Listened with empathy and a calming presence. Pt. verbalized the importance of his being able to join the family for her . Pastoral grief support is given as is prayer. Pt. displayed a more focused demeanor and a greater sense of hope. Pt. verbalized gratitude for the spiritual care support.
[2024-06-12] MEDS ORDERED: Empagliflozin 10 MG TAB PO SCH (16:00)
[2024-06-12] MEDS ORDERED: Spironolactone 12.5 MG TAB PO SCH (16:00)
[2024-06-12] MEDS ORDERED: Metoprolol Tartrate 25 MG Tab PO ONE (16:00)
[2024-06-12] MEDS ORDERED: FURO20 PO (16:39)
[2024-06-12] MEDS ORDERED: METO50ER PO (16:40)
[2024-06-12] MEDS ORDERED: JARDIANCE10 MG PO (16:42)
[2024-06-12] MEDS ORDERED: ALDACTONE25 MG PO (16:43)
--- NOTE | 2024-06-12 17:38 | NUR ---
DISCHARGE SUMMARY DISCHARGE INSTRUCTIONS GIVEN TO PT AND PTS DAUGHTERS BOYFRIEND VERBALLY AND IN WRITING. BOTH IVS REMOVED WITHOUT ISSUE, DRESSED IN GAUZE AND COBAN. PT WAS TAKEN TO EXIT BY WHEELCHAIR WITH ALL BELONGINGS BY AID. PT LEFT ON RA.
== END 2024-06-12 17:19 | disposition home or self-care (01) ==
LOC: ER 14:02 → PCU 14:03
PROVIDERS: Family Medicine; Nurse Practitioner Acute Care; Physician Assistant; Student in an Organized Health Care Education/Training Program; ADMIT Student in an Organized Health Care Education/Training Program
DX: I48.91 Unspecified atrial fibrillation (principal); I11.0 Hypertensive heart disease with heart failure; I50.23 Acute on chronic systolic (congestive) heart failure; R74.01 Elevation of levels of liver transaminase levels; R79.89 Other specified abnormal findings of blood chemistry; J44.9 Chronic obstructive pulmonary disease, unspecified; I25.10 Atherosclerotic heart disease of native coronary artery without angina pectoris; I25.2 Old myocardial infarction; I35.0 Nonrheumatic aortic (valve) stenosis; I77.810 Thoracic aortic ectasia; I36.1 Nonrheumatic tricuspid (valve) insufficiency; E78.5 Hyperlipidemia, unspecified; Z79.01 Long term (current) use of anticoagulants; Z79.899 Other long term (current) drug therapy; Z91.038 Other insect allergy status; Z86.73 Personal history of transient ischemic attack (TIA), and cerebral infarction without residual deficits
CPT/HCPCS: 0202U; 0241U; 36415; 71046; 80053; 82803; 83735; 83880; 84145; 84484; 85025; 93005; 93010; 94762; 96365; 96366; 96375; 96376; 97116; 97161; 99285-25; A9270; C8929; G0378; J1940; J3475; J7030; Q9957

== ENCOUNTER → 2024-07-14 | Outpatient (CLI) | payer MEDICARE ==
[~2024-07-14] MED LIST changes: +ALDACTONE25 MG PO; +JARDIANCE10 MG PO; +METO50ER PO
[2024-07-14 14:15] LABS: Albumin, Blood 3.5 g/dL (3.4-5.0); Albumin/Globulin Ratio 0.9 (0.8-1.8); Bilirubin, Total 1.6 mg/dL (0.1-1.0); Bun/Creatinine Ratio 21.3 (12.0-20.0); Calcium, Blood 8.2 mg/dL (8.5-10.1); Creatinine, Blood 1.22 mg/dL (0.60-1.20); Globulin, Blood 3.7 g/dL (2.2-4.0); Potassium, Blood 3.9 mmol/L (3.5-5.5); Total Protein, Blood 7.2 g/dL (6.4-8.2)
== END | disposition home or self-care (01) ==
LOC: LAB 12:33 → LAB SHORT 12:33
DX: I50.22 Chronic systolic (congestive) heart failure (principal)
CPT/HCPCS: 80053

== ENCOUNTER 2024-08-10 14:16 | Inpatient (IN) | payer MEDICARE ==
[~2024-08-10] VITALS: Ht 162.6 cm; Wt 77.0 kg
[2024-08-10 14:39] LABS: BASOPHILS ABSOLUTE AUTO 0.02 K/mm3 (0.00-0.23); BASOPHILS PERCENT AUTO 0 % (0-2); EOSINOPHILS ABSOLUTE AUTO 0.01 K/mm3 (0.00-0.68); EOSINOPHILS PERCENT AUTO 0 % (0-6); Hematocrit 45.1 % (37.0-53.0); Hemoglobin 14.7 g/dL (13.5-17.5); IMMATURE GRAN ABSOLUTE AUTO 0.03 K/mm3 (0.00-0.10); IMMATURE GRAN PERCENT AUTO 0 % (0-1); LYMPHOCYTES ABSOLUTE AUTO 1.34 K/mm3 (0.84-5.20); LYMPHOCYTES PERCENT AUTO 18 % (21-46); MONOCYTES ABSOLUTE AUTO 0.75 K/mm3 (0.16-1.47); MONOCYTES PERCENT AUTO 10 % (4-13); Mean Corpuscular HGB 28.2 pg (26.0-34.0); Mean Corpuscular HGB Conc 32.6 g/dL (31.5-36.5); Mean Corpuscular Volume 86 fL (80-100); Mean Platelet Volume 10.8 fL (9.1-12.4); NEUTROPHILS ABSOLUTE AUTO 5.32 K/mm3 (1.96-9.15); NEUTROPHILS PERCENT AUTO 71 % (41-73); Platelet Count 216 K/mm3 (150-400); RDW Coefficient Variation 15.4 % (11.7-14.2); RDW Standard Deviation 47.9 fL (35.1-46.3); Red Blood Cell Count 5.22 M/mm3 (4.30-5.90); White Blood Cell Count 7.47 K/mm3 (4.00-11.30)
[2024-08-10 14:56] LABS: International Normalized Ratio 1.51; Prothrombin Time Results 15.7 Sec (9.7-11.5)
[2024-08-10 14:57] LABS: Albumin, Blood 3.5 g/dL (3.4-5.0); Bilirubin, Total 3.3 mg/dL (0.1-1.0); Calcium, Blood 8.9 mg/dL (8.5-10.1); Creatinine, Blood 2.03 mg/dL (0.60-1.20); Globulin, Blood 3.4 g/dL (2.2-4.0); Potassium, Blood 4.3 mmol/L (3.5-5.5); Total Protein, Blood 6.9 g/dL (6.4-8.2)
[2024-08-10 15:24] LABS: Base Excess Venous -4.2 mmol/L; Bicarbonate Venous 20.5 mmol/L (24.0-30.0); PCO2 Venous 43.5 mmHg (38-42); pH Blood Venous 7.31 (7.34-7.37)
[2024-08-10 16:05] LABS: Source, Urine Clean Catch
[2024-08-10] MEDS ORDERED: FUROSEMIDE40 MG PO (16:14)
[2024-08-10 16:28] LABS: Appearance, Urine Clear (Clear); Bilirubin, Urine Neg (Neg); Blood, Urine Neg (Neg); Color, Urine Yellow (P-Yellow); Glucose Qualitative, Urine Neg (Neg); Ketones, Urine Neg (Neg); Leukocyte Esterase, Urine Neg (Neg); Nitrite, Urine Neg (Neg); Protein, Urine 2+ (Neg); Urobilinogen, Urine 3+ (Normal)
[2024-08-10] MEDS ORDERED: TRAZ50 PO (16:34)
[2024-08-10] MEDS ORDERED: SPIRONOLACTONE25 MG PO (16:36)
[2024-08-10 16:46] LABS: Bacteria Rare /hpf; Red Blood Cells, Urine Not Seen /hpf (0-2); Squamous Epithelial Cells Rare /hpf (Few); White Blood Cells, Urine 0-2 /hpf (0-5)
[2024-08-10] MEDS ORDERED: FLU VACC TS2024-25(6MOS UP)/PF 45 MCG/0.5 ML SYRINGE IM SCH (17:00)
[2024-08-10 17:27] LABS: U Amphetamine Screen Not Detected; U Barbituate Screen Not Detected; U Benzodiazapine Screen Not Detected; U Buprenorphine Screen Not Detected; U Cannabinoids Screen Not Detected; U Cocaine Screen Not Detected; U Methadone Screen Not Detected; U Methamphetamine Screen Not Detected; U Opiates Screen Not Detected; U Oxycodone Screen Not Detected; U Phencyclidine Screen Not Detected
[2024-08-10] MEDS ORDERED: Dextrose 5% 1,000 ML IV SCH (17:30)
[2024-08-10] MEDS ORDERED: OLANZapine 10 MG Vial IM ONE (18:00)
[2024-08-10 18:06] LABS: Albumin, Blood 3.1 g/dL (3.4-5.0); Anion Gap 18 mmol/L (3-11); Anti-Xa UFH, PHA Monitoring 0.67 IU/mL; Blood Urea Nitrogen 71 mg/dL (8-24); Bun/Creatinine Ratio 33.5 (12.0-20.0); CO2, Blood 18 mmol/L (21-32); Calcium, Blood 8.5 mg/dL (8.5-10.1); Chloride, Blood 119 mmol/L (98-108); Creatinine, Blood 2.12 mg/dL (0.60-1.20); Glomerular Filtration Rate 35 (60-); Glucose, Blood 102 mg/dL (70-99); International Normalized Ratio 1.61; Phosphorus, Blood 5.6 mg/dL (2.5-4.9); Potassium, Blood 4.1 mmol/L (3.5-5.5); Prothrombin Time Results 16.6 Sec (9.7-11.5); Sodium, Blood 151 mmol/L (136-145)
[2024-08-10 19:53] VITALS: BP 103/91
--- NOTE | 2024-08-10 20:00 | NUR ---
ASSUMPTION NOTE: THIS RN TO ASSUME CARE OF PATIENT COMING FROM THE EMERGENCY ROOM. PATIENT IS ALERT AND ORIENTED X2, KNOWS HE IS IN THE HOSPITAL AND TO SELF. PATIENT DENIED CHEST PAIN/PRESSUE OR FEELING SHORT OR BREATH. PATIENT IS GRUNTING AND ASKING FOR WATER, THIS RN NOTIFIED HE IS TO NOT HAVE ANYTHING BY MOUTH DUE TO ASPIRATION RISK AND NOT BEING FULLY ALERT. PATIENT HAS CALL LIGHT WITHIN REACH BED IN LOWES POSITION AND NOT NEEDING ANYTHING FURTHER AT THIS TIME.
[2024-08-10 20:03] LABS: Base Excess Venous -3.9 mmol/L; Bicarbonate Venous 21.1 mmol/L (24.0-30.0); PCO2 Venous 41.2 mmHg (38-42); pH Blood Venous 7.34 (7.34-7.37)
[2024-08-10] MEDS ORDERED: Dose Adjust by Pharmacy XX STA (20:08)
[2024-08-10] MEDS ORDERED: Heparin Sodium,Porcine/0.5 NS 500 ML IV SCH (20:10)
[2024-08-10 23:20] VITALS: BP 134/103
[2024-08-11] VITALS (12 sets, daily range): BP systolic 77–131; BP diastolic 59–92
[2024-08-11] MEDS ORDERED: HYDROmorphone HCl/Pf 1MG SYR IV PRN (04:25)
[2024-08-11] MEDS ORDERED: Acetaminophen 650 MG Supp PR PRN (04:25)
[2024-08-11 04:40] LABS: BASOPHILS ABSOLUTE AUTO 0.03 K/mm3 (0.00-0.23); BASOPHILS PERCENT AUTO 0 % (0-2); EOSINOPHILS ABSOLUTE AUTO 0.01 K/mm3 (0.00-0.68); EOSINOPHILS PERCENT AUTO 0 % (0-6); Hematocrit 43.3 % (37.0-53.0); Hemoglobin 13.8 g/dL (13.5-17.5); IMMATURE GRAN ABSOLUTE AUTO 0.03 K/mm3 (0.00-0.10); IMMATURE GRAN PERCENT AUTO 0 % (0-1); LYMPHOCYTES ABSOLUTE AUTO 1.45 K/mm3 (0.84-5.20); LYMPHOCYTES PERCENT AUTO 16 % (21-46); MONOCYTES ABSOLUTE AUTO 0.85 K/mm3 (0.16-1.47); MONOCYTES PERCENT AUTO 9 % (4-13); Mean Corpuscular HGB 27.7 pg (26.0-34.0); Mean Corpuscular HGB Conc 31.9 g/dL (31.5-36.5); Mean Corpuscular Volume 87 fL (80-100); Mean Platelet Volume 10.7 fL (9.1-12.4); NEUTROPHILS PERCENT AUTO 75 % (41-73); Platelet Count 192 K/mm3 (150-400); RDW Coefficient Variation 15.6 % (11.7-14.2); RDW Standard Deviation 48.7 fL (35.1-46.3); Red Blood Cell Count 4.99 M/mm3 (4.30-5.90); White Blood Cell Count 9.37 K/mm3 (4.00-11.30)
[2024-08-11] MEDS ORDERED: Clarify Drug Order XX ONE (05:10)
[2024-08-11 05:13] LABS: Albumin, Blood 3.1 g/dL (3.4-5.0); Bilirubin, Total 3.4 mg/dL (0.1-1.0); Bun/Creatinine Ratio 35.2 (12.0-20.0); Calcium, Blood 8.3 mg/dL (8.5-10.1); Creatinine, Blood 1.99 mg/dL (0.60-1.20); Globulin, Blood 3.1 g/dL (2.2-4.0); Potassium, Blood 4.1 mmol/L (3.5-5.5); Total Protein, Blood 6.2 g/dL (6.4-8.2)
--- NOTE | 2024-08-11 06:10 | NUR ---
SHIFT SUMMARY: PATIENT IS ALERT AND ORIENTED X2 AT THE START OF SHIFT AND WAXED THROUGHOUT. KNEW HE WAS IN THE HOSPITAL AT TIMES AND FORGETFUL WHEN HE BECAME AGITATED AND WAS VERY RESTLESS THROUGOUT THE SHIFT.PATIENT ON TELE SHOWING AFIB WITH RATE IN 90-130'S. SATTING >92% ON ANYWHERE FROM 2-5 LITERS. WHEN PATIENT GETS WORKED UP AND DURING SLEEP HE DOES DESAT, BUT DOES RECOVERY FAIRLY QUICKLY. PATIENT PULLED AT ESCOBAR AND LINES THROUGOUT THE NIGHT. BED ALARM IS ON PATIENT WOULD FORGET HE HAD THE ESCOBAR AND TRY TO GET UP TO USE THE RESTROOM. PATIENT KEPT STATING "I HAVE TO PEE, HELP ME I CAN'T PEE", THIS RN REMINDED HIM SEVERAL TIMES THROUGOUT THE SHIFT HE HAD THE ESCOBAR, I WALKED HIM THROUGH HOW IT WORKED AND WE DID A BLADDER SCAN THAT SHOWED NOTHING RETAINING IN THE BLADDER. PATIENT WAS MEDICATED PER EMAR FOR SOME LEG PAIN AND EVENTUALLY SETTLED DOWN AND WAS ABLE TO GET SOME REST. PATIENT HAS CALL LIGHT WITHIN REACH, BED IN LOWEST POSITION AND NOT STATING HE NEEDS ANYTHING CURRENTLY.
--- NOTE | 2024-08-11 06:45 | NUR ---
MD TO BEDSIDE: RESIDENT GLEN CAME TO BEDSIDE AND ASKED HOW THE PATIENT DID OVERNIGHT. THIS RN NOTIFIED HE WAS VERY RESTLESS AND PULLED AT HIS ESCOBAR QUIE A BIT THROUGOUT THE NIGHT AND STATED " HE FELT HE COULDN'T PEE". PLAN FOR TODAY WILL BE TO GET ANOTHER EKG DONE, POSSIBLE ECHO AND THEY WILL LOOK AT LABS AND DETERMINE IF THE DEXTROSE RATE NEEDS TO BE INCREASED LABS CAME BACK THIS MORNING AND CONTINUE TO BE HIGH.
[2024-08-11 07:49] LABS: Base Excess Venous -2.4 mmol/L; Bicarbonate Venous 21.7 mmol/L (24.0-30.0); PCO2 Venous 40.7 mmHg (38-42); pH Blood Venous 7.36 (7.34-7.37)
[2024-08-11] MEDS ORDERED: Furosemide 10 MG/ML 4ML Vial IV SCH ×2 (08:00→16:00)
[2024-08-11] MEDS ORDERED: Furosemide 10 MG / ML 2ML Vial IV SCH (08:00)
[2024-08-11] MEDS ORDERED: Dextrose 5% 1,000 ML IV SCH (08:00)
[2024-08-11] MEDS ORDERED: Metoprolol Tartrate 1 MG/ML 5 ML VIAL IV ONE (08:00)
[2024-08-11] MEDS ORDERED: Metoprolol Tartrate 1 MG/ML 5 ML VIAL IV PRN (08:00)
[2024-08-11] MEDS ORDERED: FentaNYL Citrate 50 MCG/ML 2 ML Injection IV STA (08:50)
[2024-08-11] MEDS ORDERED: FentaNYL Citrate 50 MCG/ML 2 ML Injection IV PRN (09:00)
--- NOTE | 2024-08-11 09:44 | NUR ---
ASSUMPTION OF CARE: PATIENT IS EASILY AROUSABLE VERBALLY, ALERT AND ORIENTED X 2-3, HAS BEEN SLEEPY THAN YELLING OUT FOR HELP, UNABLE TO MAKE NEEDS KNOWN, DENIES PAIN OF ANY KIND, DESPITE INCREASED FLACC SCORE. PATIENT THROUGH THE NIGHT RECIEVED DIALUDED AND OLANZAPINE IN THE ED COULD POTENTIALLY BE REASON FOR IRREGULAR BREATHING PATTERN, BNP ELEVATED, IRREGULAR SPO2 DEMAND VBG LASIX AND METORPOLOL GIVEN FOR AFLUTTER HITTING THE 130'S. PATIETN IS NPO ESCOBAR [facility]. URINE OUTPUT MUCH IMPROVED FROM LASIX. LUNG SOUNDS IMPROVED FROM LEFT SIDED CRACKLES TO COARSE AND WHEEZE. PALLIATIVE NOTIFIED OF PATIENT CONDITION. HOSPITALIST AND RESIDENTS HAVE ROUNDED THOUROUGHLY. BLOOD PRESSURE MAP >65. PLAN OF CARE CONTINUES. BED ALARM FOR SAFETY 1 X 5 BEATS OF VTACH MAG 3.0. MONITORING
[2024-08-11] MEDS ORDERED: Dose Adjust by Pharmacy XX STA (11:16)
[2024-08-11 11:56] LABS: Albumin, Blood 2.9 g/dL (3.4-5.0); Anion Gap 14 mmol/L (3-11); Blood Urea Nitrogen 67 mg/dL (8-24); Bun/Creatinine Ratio 32.1 (12.0-20.0); CO2, Blood 23 mmol/L (21-32); Calcium, Blood 8.3 mg/dL (8.5-10.1); Chloride, Blood 119 mmol/L (98-108); Creatinine, Blood 2.09 mg/dL (0.60-1.20); Glomerular Filtration Rate 36 (60-); Glucose, Blood 132 mg/dL (70-99); Phosphorus, Blood 5.4 mg/dL (2.5-4.9); Potassium, Blood 3.6 mmol/L (3.5-5.5); Sodium, Blood 152 mmol/L (136-145)
--- NOTE | 2024-08-11 14:41 | NUR ---
UPDATE NOTE: PATIENT STILL DECLINING, STILL PULLING AT LINES AND SHAWN ESCOBAR DC'Colin WITH PERMISSION, MALE PUREWICK IN PLACE. PATIENT APPEARS MORE COMFORTABLE, BLOOD PRESSURE BORDERLINE >65 ON MAP BUT CAN BE LOW 90'S SYSTOLICALLY. STILL UNABLE TO MAKE NEEDS KNOWN INCREASED ROUNDING. IV FLUIDS WERE STOPPED DUE TO CHF AND BEING OVERLOADED. INCREASED DIURETICS PLACED BY . SALMAITDANDY MONIOTRING AND TELE REMAINS IN PLACE. SPOKE WITH DAUGHTER PERSONALY ABOUT PATIENT CONDITION. DAUGHTER TO CALL BACK WITH [employer] DIRECTIVES, AND PHYSICIAN MENTION SHE MAY CALL DAUGHTER TO UPDATE WELL.
[2024-08-11] MEDS ORDERED: Scopolamine Hydrobromide Patch TOP PRN (15:20)
[2024-08-11] MEDS ORDERED: Haloperidol Lactate Inj. 5 MG/ML Injection IV PRN (15:20)
[2024-08-11] MEDS ORDERED: Atropine Sulfate 1% Opth Soln 2ML BTL SL PRN (15:20)
[2024-08-11] MEDS ORDERED: Morphine Sulfate 10 MG/ML 1MLSYR IV PRN (15:20)
[2024-08-11] MEDS ORDERED: LORazepam 1 MG Tab PO PRN (15:20)
[2024-08-11] MEDS ORDERED: Ondansetron HCl 2 MG / ML 2ML Vial IV PRN (15:20)
[2024-08-11] MEDS ORDERED: LORazepam 2 MG/ML 1ML Injection IV PRN (15:20)
[2024-08-11] MEDS ORDERED: Morphine Sulfate 20 MG/1ML 1 ML Oral Syringe SL PRN (15:20)
--- NOTE | 2024-08-11 17:00 | NUR ---
EOS: PATIENT TRANSITIONED TO COMFORT CARE AFTER DAUGHTER AND SON SEEN CONDITION, RESIDENTS AT BEDSIDE AND ORDERS PLACE. PATIENT IS COMFORTABLE PAIN UNDER CONTROL, NO LONGER IS GETTING AGITATED AND AGREESIVE WITH FAMILY STAFF OR SELF. PATIENT NO LONGER ATTEMPTING TO GET OUT OF BED UNSAFELY IS RESTING PEACEFULLY, ESCOBAR PLACED FOR RETENTION.
--- NOTE | 2024-08-11 20:03 | NUR ---
ASSUMPTION NOTE: THIS RN TO ASSUME CARE OF PATIENT. PATIENT'S FAMILY AT BEDSIDE. PATIENT WAS REAJUSTED IN BED, GIVEN MEDICATION PER EMAR. PATIENT IS AGITATED IN BED THROWING COVERS OFF, ASKING FOR HELP AND TUGGING AT HIS BRIEFS & ESCOBAR. PATIENT HAS BED IN LOWEST POSITION, CALL LIGHT WITHIN REACH.
--- NOTE | 2024-08-12 05:50 | NUR ---
SHIFT SUMMARY: PATIENT IS COMFORT CARE STATUS. IS ALERT X1, TO SELF ONLY. DOES WAKE UP TO VERBAL STIMULI. PATIENT WAS RESTLESS THROUGHOUT THE NIGHT AND GRUNTING, PULLING AT LINES/ESCOBAR AND MULTIPULE ATTEMPTS AT TRYING TO GET OUT OF BED. PATIENT WAS MEDICATED PER EMAR THROUGHOUT THE SHIFT AND DID SETTLED DOWN TOWARDS THE END. SUCTION IS SET UP IN THE ROOM AND PATIENT WAS SUCTIONED THROUGHOUT THE SHIFT DUE TO SOUNDING WET & HAVING EXTRA SECRETIONS. PATIENT HAS CALL LIGHT WITHIN REACH, BED IN LOWEST POSITION.
--- NOTE | 2024-08-12 13:31 | NUR ---
"Spiritual Care | Comfort Care Visit. Pt. is on comfort care. daughter Santa and her spouse are both present. Fcilitated a life review and gave some basic EOL education. matters of danitza and belief are also considered. Family was interested in a home lester list. Provided pastoral care and a comforting presence. At bedside we Prayed for the Pt. Family will discuss home options. Family verbalized gratitude for the spiritual carfe visit and welcomed this fire observer to return."
--- NOTE | 2024-08-12 15:22 | NUR ---
"SPiritual Care | EOL Decisions Family has chosen [facility] as the home of choice when the Pt. passes. The family verbralized gratitude for the spiritual care visits."
--- NOTE | 2024-08-12 17:05 | NUR ---
PT REMAINED UNRESPONSIVE T/O SHIFT, HAS FACAL GRIMACES WHEN REPOSITIONED AND SUCTONED, PT ALSO NEEDING FREQUENT SUCTIONING DUE TO INCREASE MUCUS IN THE MOUTH, ATROPINE DROPS AND MORPHINE WAS GIVEN WITH EFFECTIVENESS. FAMILY AT TH BEDSIDE AT THIS TIME. BUSINESS MACHINE MECHANIC WAS ABLE TO COME BY AND SPEAK TO THE FAMILY. FAMILY ALSO CHOOSES [facility] IF PATIENT PASSED. PT REPOSITIONED FOR COMFORT ORAL CARE PROVIDED.
--- NOTE | 2024-08-12 17:31 | NUR ---
"Spiritual Care | EOL Pt. had passed, gathered son and daughter to the bedside. Prayed a blessing over the Pt. and family. Daughter and son both verbalize gratitude for the spiritual care visits. As noted in previous chart; [facility] is the choice for the family."
--- NOTE | 2024-08-12 18:01 | NUR ---
PT AT 1711 WITH FAMILY AT THE BEDSIDE. CONTROLLED ATMOSPHERIC FURNACE BRAZER CAME BY TO PRAY FOR THE PT AND FAMILY. POST MORTEM CARE PROVIDED. FINAL DISCHARGE CURRENTLY BEING DONE BY GRINDER MACHINE KNIFE SETTER
== END 2024-08-12 18:30 | DRG 291 ==
LOC: ER 14:16 → ERHOLD 16:59 → PCU 16:59
PROVIDERS: Family Medicine; Registered Nurse; Student in an Organized Health Care Education/Training Program; ADMIT Internal Medicine
PROC: 0T9B70Z Drainage of Bladder with Drainage Device, Via Natural or Artificial Opening (ICD-10-PCS; principal; 2024-08-10)
DX: I11.0 Hypertensive heart disease with heart failure (principal); G92.8 Other toxic encephalopathy; I50.23 Acute on chronic systolic (congestive) heart failure; G93.41 Metabolic encephalopathy; N17.9 Acute kidney failure, unspecified; E87.0 Hyperosmolality and hypernatremia; F03.94 Unspecified dementia, unspecified severity, with anxiety; Z51.5 Encounter for palliative care; Z66 Do not resuscitate; I48.91 Unspecified atrial fibrillation; R79.89 Other specified abnormal findings of blood chemistry; E83.41 Hypermagnesemia; R23.8 Other skin changes; E83.39 Other disorders of phosphorus metabolism; R74.01 Elevation of levels of liver transaminase levels; Z79.82 Long term (current) use of aspirin; Z79.01 Long term (current) use of anticoagulants; I25.2 Old myocardial infarction; Z86.73 Personal history of transient ischemic attack (TIA), and cerebral infarction without residual deficits; Z87.891 Personal history of nicotine dependence
CPT/HCPCS: 51702; 51798; 70450; 70496; 70498; 71046; 73620; 76700; 80053; 80069; 80320; 81001; 82140; 82607; 82746; 82803; 82947; 83605; 83735; 83880; 84100; 84145; 84443; 84484; 85025; 85520; 85610; 85651; 85730; 86140; 93005; 93010; 94762; 99285-25; A9270; C1751; J1171; J1630; J1644; J1940; J2060; J2270; J2405; J3010; J7070; Q9967